=== PATIENT | female | born 1985 | race Caucasian/White ===

== ENCOUNTER → 2019-02-15 16:48 | Outpatient (CLI) | payer OTHER, SELFPAY ==
[2019-02-15 17:35] LABS: Appearance Urine UA CLEAR; Bilirubin Urine UA NEGATIVE (NEGATIVE); Color Urine UA YELLOW; Glucose Urine UA NEGATIVE (Negative); Ketones Urine UA 2+ (NEGATIVE); Leukocyte Esterase Urine UA NEGATIVE (NEGATIVE); Nitrite Urine UA NEGATIVE (Negative); Occult Blood Urine UA NEGATIVE (Negative); Protein Urine UA NEGATIVE (Negative); Specific Gravity Urine UA >=1.030 (1.000-1.035); Urobilinogen Urine UA 0.2 E.U./dL (0.2)
[2019-02-15 17:41] LABS: Add Manual Diff / Slide Review NO; Basophils Absolute Auto 100 /uL (0-100); Basophils Percent Auto 0.6 % (0-2); Eosinophils Absolute Auto 200 /uL (0-450); Eosinophils Percent Auto 1.7 % (2-4); Hemoglobin 12.9 g/dL (12.0-16.0); Lymphocytes Absolute Auto 1700 /uL (1100-4500); Mean Corpuscular HGB Conc 33.8 % (30-36); Mean Corpuscular Hemoglobin 29.1 PG (26-34); Monocytes Absolute Auto 700 /uL (0-900); Monocytes Percent Auto 6.4 % (3-14); Neutrophils Absolute Auto 8000 /uL (1500-7000); Neutrophils Percent Auto 75.3 % (50-75); Platelet Count 294 X10^3/uL (150-400); Red Blood Cell Count 4.42 X10^6/uL (4.0-5.2); Red Cell Distribution Width 13.2 % (11.6-14.8); White Blood Cell Count 10.7 X10^3/uL (4.5-11.0)
[2019-02-15 18:18] LABS: Hemoglobin A1C% w Est Avg Glu 4.9 % (4.0-6.0)
[2019-02-15 19:03] LABS: TSH w/ Reflex to FT4 3.88 uIU/mL (0.47-4.68)
[2019-02-15 19:31] LABS: Hepatitis B Surface Antigen NEGATIVE s/c (NEGATIVE)
[2019-02-15 19:48] LABS: HIV 1 & 2 Ab/Ag 4th Gen Combo NEGATIVE (NEGATIVE); Hep C Virus Ab w/Reflex Quant NEGATIVE s/c (NEGATIVE)
[2019-02-17 14:30] LABS: RPR Screen Nonreactive (Nonreactive)
[2019-02-22 10:45] LABS: AFP, Serum 27.1 ng/mL; Calc Gestational Age 16.1; Cigarette Smoker N; Donated Egg NOT GIVEN; Donor Egg Age NOT GIVEN; Estriol, Free 0.59 ng/mL; Inhibin A, Dimeric 79 pg/mL; Maternal Ethnicity NOT GIVEN; Maternal Weight 282 lbs; Number of Fetuses NOT GIVEN; Previous Pregnancy Down Syndro NOT GIVEN; hCG, MoM 0.97; hCG, Serum 23.4 IU/mL
== END ==
PROVIDERS: Visit Provider Family Medicine
DX: Z34.82 Encounter for supervision of other normal pregnancy, second trimester (principal); Z3A.16 16 weeks gestation of pregnancy
CPT/HCPCS: 80055; 81003; 82105; 82677; 83036; 84443; 84702; 86336; 86787; 86803; 86850; 86870; 86900; 86901; 87077; 87086; 87389

== ENCOUNTER → 2019-03-23 14:37 | Outpatient (CLI) | payer OTHER, SELFPAY ==
[2019-03-23 15:21] LABS: Hemoglobin A1C% w Est Avg Glu 4.9 % (4.0-6.0)
[2019-03-23 17:26] LABS: TSH w/ Reflex to FT4 4.81 uIU/mL (0.47-4.68)
== END ==
PROVIDERS: PCP Family Medicine; Visit Provider Family Medicine
DX: E03.9 Hypothyroidism, unspecified (principal); R73.9 Hyperglycemia, unspecified
CPT/HCPCS: 36415; 83036; 84439; 84443

== ENCOUNTER → 2019-04-20 11:39 | Outpatient (CLI) | payer OTHER, SELFPAY ==
--- NOTE | 2019-04-20 11:40 | DI.US.S_ITS ---
PROCEDURE: US OB >= 14 WEEKS FETUS INDICATIONS: ANATOMY OUTSIDE/PRIOR DATING DATA: Last menstrual period (LMP): 10/25/18. LMP-based estimated date of delivery (EAMON): 08/01/19. First dating scan (date and location): 04/20/19. Estimated date of delivery (EAMON) from first dating scan: 07/27/19. TECHNIQUE: Real-time scanning was performed of the fetus, with image documentation and biometric measurements. Endovaginal scanning: No COMPARISON: None. FINDINGS: General: Presentation: Breech. Placenta: Placental position is posterior fundal, without previa. Amniotic fluid index: 17.5 cm, normal range is 5-24 cm. heart rate: 144 beats per minute. Maternal cervical canal: 4.1 cm long. Normal lower limit is 2.5 cm. biometrics: Biparietal diameter: 25 weeks 5 days Head circumference: 25 weeks 5 days Abdominal circumference: 27 weeks 1 day Femur length: 25 weeks 2 days Estimated gestational age from initial scan: not applicable. Composite gestational age from present scan: 26 weeks Estimated weight and percentile: 920 g; the 83rd percentile Measurement variability for biometric dating: +/- 7 days from 14 weeks to 15 weeks 6 days gestation, +/- 10 days from 16 weeks to 21 weeks 6 days gestation, +/- 2 weeks from 22 weeks to 27 weeks 6 days gestation, +/- 3 weeks for 28 weeks gestation or later. weight reference: 4500 g or EFW >90/95% is considered macrosomia or large for gestational age. EFW <10% is small for gestational age. EFW 5% or less is considered intra-uterine growth restriction. Anatomic survey: Neuro: Not well-visualized secondary to positioning. Nuchal skin fold: Not well-visualized on this exam. Face: Nose and lips, facial profile not well-seen on this exam. Spine: No ultrasound evidence for spina bifida. Heart: 4-chambered heart is present. Right ventricular outflow tract appears unremarkable by ultrasound; left ventricular outflow tract is not well seen on this exam. Diaphragm: Diaphragm appears intact. Stomach: Stomach appears present. Kidneys: No hydronephrosis identified by ultrasound Cord: Umbilical and placental cord insertion site not well-visualized. Bladder: Within normal limits in size. Extremities: All 4 extremities identified. IMPRESSION: 1. Single intrauterine gestation with composite gestational age of 26 weeks 0 days and heart rate of 144 beats per minute. 2. intracranial structures, facial structures, left ventricular outflow tract, as well as the placental and umbilical cord insertion site are not well-visualized on this exam. Followup up anatomy scan recommended. Dictated by: Loco WARNER Interpreted: Tony Rolon MD on 04/20/2019 at 14:44 Approved by: Tony Rolon M.D. on 04/20/2019 at 20:33
== END ==
LOC: US 11:40
PROVIDERS: PCP Family Medicine; Visit Provider Family Medicine
DX: Z36.89 Encounter for other specified antenatal screening (principal); Z3A.26 26 weeks gestation of pregnancy
CPT/HCPCS: 76811

== ENCOUNTER → 2019-05-05 09:37 | Outpatient (CLI) | payer OTHER, SELFPAY ==
[2019-05-05 12:29] LABS: Hematocrit 34.7 % (36-46); Hemoglobin 11.8 g/dL (12.0-16.0)
[2019-05-05 12:35] LABS: GTT (PREG) 1 Hour PP 50gm Dose 116 mg/dL (76-139)
[2019-05-05 12:47] LABS: Free T4, Direct Thyroxine 0.64 ng/dL (0.78-2.19)
[2019-05-05 13:01] LABS: Thyroid Stimulating Hormone 4.42 uIU/mL (0.47-4.68)
== END ==
PROVIDERS: PCP Family Medicine; Visit Provider Family Medicine
DX: E03.9 Hypothyroidism, unspecified (principal); R79.89 Other specified abnormal findings of blood chemistry; Z34.82 Encounter for supervision of other normal pregnancy, second trimester; Z3A.25 25 weeks gestation of pregnancy
CPT/HCPCS: 36415; 82950; 84439; 84443; 85014; 85018; 86850

== ENCOUNTER → 2019-07-05 12:40 | Outpatient (CLI) | payer OTHER, SELFPAY ==
[2019-07-06 08:45] LABS: Strep Grp B PCR NEG for Grp B Strep
== END ==
LOC: LAB 12:40
PROVIDERS: PCP Family Medicine; Visit Provider Family Medicine
DX: Z34.83 Encounter for supervision of other normal pregnancy, third trimester (principal); Z3A.36 36 weeks gestation of pregnancy
CPT/HCPCS: 87653

== ENCOUNTER 2019-07-27 11:22 | Inpatient (IN) | payer OTHER, SELFPAY ==
--- NOTE | 2019-07-27 11:33 | P.HP_ITS ---
History of Present Illness History of Present Illness Date Patient Seen: 07/27/19 Time Patient Seen: 11:33 Chief complaint: [id number] PRIMARY Narrative: 34-year-old female G5 para 0 with an estimated due date of August 01, 2019 consistent with LMP and 20 week ultrasound. Patient presents to the labor and delivery for for section for breech position . Patient established care at 16 weeks and had routine follow-up. During her care her complications included hypothyroidism with thyroid replacement medication Rh negative received RhoGAM and allergies. During her she had a total weight gain of approximately 40 lb. Her blood pressure was normal throughout although she had some mild edema. labs show O negative blood type antibody screen initially was positive due to a RhoGAM that was given in [place] hemoglobin 38 hematocrit 12.9 platelet count 294 VDRL L negative hepatitis-B surface antigen negative HIV negative rubella immune varicella immune 2nd trimester screening genetic screening was negative repeat hemoglobin hematocrit at 37 weeks with 34.7 and 11.81 hour glucose was 116 repeat antibody screen at 27 weeks was negative ultrasound showed normal anatomy GBS status was negative Patient states she is doing well today with no concerns other than anxious about doing a . Patient's past medical history includes seasonal allergies migraine headaches asthma anemia constipation urinary tract infection Past surgical history includes tonsils and adenoids Gynecological history HPV positive and abnormal Paps denies STD history. Social history occasional of a piece no recreational drugs or alcohol use Meds Home Medications and Allergies Home Medications Medication Instructions Recorded Confirmed Type albuterol sulfate 90 mcg/actuation 1 puff INHALATION Q6H PRN 02/15/19 07/05/19 History aerosol inhaler cetirizine 10 mg tablet 10 mg PO DAILY 02/15/19 07/05/19 History fluticasone propionate 50 1 spray NASAL DAILY PRN 02/15/19 07/05/19 History mcg/actuation nasal spray,suspension prenat.vits,jason,[id number] 1 tab PO DAILY 02/15/19 07/05/19 History levothyroxine 50 mcg tablet 50 mcg PO DAILY #90 tab 06/07/19 07/05/19 Rx sertraline 50 mg tablet 50 mg PO DAILY #30 tab 07/05/19 07/05/19 Rx Allergies Allergy/AdvReac Type Severity Reaction Status Date / Time No Known Drug Allergies Allergy Verified 07/05/19 10:11 Exam Narrative Exam Narrative: . General: Alert no apparent distress. Affect is appropriate. HEENT: Neck is supple without lymphadenopathy pupils equal round and reactive. Cardio: S1-S2 regular rate and rhythm. Respiratory: Lungs clear to auscultation. Abdomen: Gravid. Extremities: Normal deep tendon reflexes trace edema. [place]: heart tones: Objective Labs Result Diagrams: 07/27/19 12:20 Assessment & Plan Assessment & Plan narrative: 34-year-old G5 para 0 39 weeks gestational age in the hospital for primary for breech presentation. Preoperative orders were written for IV placed CBC type and screen. Patient will be given antibiotics on-call. Reviewed patient with patient and partner operative procedure preoperative operative and postoperative care were reviewed including risks benefits and common complications. Questions were answered. Reviewed with patient risks include bleeding infection injury to bladder or bowel. Also the potential possibility of receiving a blood transfusion which she would agree to this if needed. Ultrasound was done before procedure to d istinguish continued breech presentation which baby was.
[2019-07-27 12:34] LABS: Add Manual Diff / Slide Review NO; Basophils Absolute Auto 100 /uL (0-100); Basophils Percent Auto 0.5 % (0-2); Eosinophils Absolute Auto 100 /uL (0-450); Eosinophils Percent Auto 1.1 % (2-4); Hematocrit 34.3 % (36-46); Hemoglobin 11.6 g/dL (12.0-16.0); Lymphocytes Absolute Auto 1800 /uL (1100-4500); Lymphocytes Percent Auto 14.9 % (25-40); Mean Corpuscular HGB Conc 33.8 % (30-36); Mean Corpuscular Hemoglobin 26.7 PG (26-34); Mean Corpuscular Volume 79.1 fL (80-100); Monocytes Absolute Auto 1000 /uL (0-900); Monocytes Percent Auto 8.2 % (3-14); Neutrophils Absolute Auto 9200 /uL (1500-7000); Neutrophils Percent Auto 75.3 % (50-75); Platelet Count 310 X10^3/uL (150-400); Red Blood Cell Count 4.34 X10^6/uL (4.0-5.2); Red Cell Distribution Width 14.9 % (11.6-14.8); White Blood Cell Count 12.2 X10^3/uL (4.5-11.0)
[2019-07-27] MEDS: LACTATED RINGERS 1,000 ML 42 ML IV ×2 (12:41→13:52)
--- NOTE | 2019-07-27 12:44 | SUR.OPER ---
Supine on Padded OR bed, head on pillow, safety belt at thigh, arms secured on padded arm boards at <90 degrees abduction. Bump under right buttock. Legs uncrossed with pillow under knees, gel pad to heels, tape over blanket to lower legs.
[2019-07-27] MEDS: CEFAZOLIN 2 GM/100 ML FROZ.PIGGY IV (13:23)
[2019-07-27] MEDS: ACETAMINOPHEN IV 1,000 MG/100 ML VIAL 400 MG IV (13:47)
--- NOTE | 2019-07-27 13:57 | SUR.OPER ---
VIABLE MALE INFANT DELIVERED AT 1346. PLACENTA AND CORD BLOOD TO OB WITH RN.
[2019-07-27 14:30] VITALS: BP 119/61; PULSE 68; RESP 15; TEMP 36.3; O2SAT 99
--- NOTE | 2019-07-27 14:30 | P.PCN_ITS ---
Procedures Date/Time Date of procedure: 07/27/19 Time of procedure: 14:30 General Procedure description: Procedure: Lower segment transverse section Consent: Verbal and written informed consent were obtained from the patient placed on the chart. Indications: 34-year-old G5 para 0 at 39 weeks gestational age with breech presentation Findings: Normal uterus normal ovaries Normal male infant breech presentation Anesthesia: Spinal Surgeon: Dr. Gavino Negro Supervisor Network Control Operators: Dr. Bass Estimated blood loss: 500 mL Drains: Willams to gravity. IV fluids: 1800 LR Description of procedure: The patient was brought to the operating room after her spinal epidural, preparation, and Willams had been performed. The abdomen was prepped and draped in tested for for analgesia. When it was found to be adequate, a lower abdominal Pfannenstiel incision was made with first with a knife and cared down to the fascia with a second knife. The fascia was incised in the midline and extended laterally with a knife. Bleeding points were clamped with hemostats and Bovie coagulated. The rectus muscles were by blunt dissection. The rectus muscles were divided in the midline and the peritoneum was grasped with hemostats and carefully entered with Castellanos scissors. The incision was extended bilaterally. The bladder blade was then placed. The vesicoperitoneum was grasped with smooth pickups, entered with Metzenbaum scissors, and extended laterally. The bladder flap was created by gently blunt dissection and placed behind the bladder blade. The lower uterine segment was noted to be thin was carefully incised with the scalpel and extended laterally with the fingers. A live was found to be in the breech. Baby's bottom was easily delivered and then the body. Both arms were then delivered the head was easy then delivered onto the mother's abdomen.. The baby was then suctioned and cried immediately, and was handed to the waiting attendant. The placenta was delivered manually. The uterus was explored with a wet lap sponge and found to be clear membranes. The first layer of the uterine closure was with running locking #1 chromic catgut suture. The second layer with an imbricating #1 chromic catgut suture. Hemostasis was carefully checked and found to be satisfactory. The bladder flap was closed with a running 2-0 chromic catgut suture. The fallopian tubes and ovaries were inspected and to be found normal bilaterally. After sponge and needle counts were found to be correct the peritoneum was closed with 2-0 chromic catgut suture. Rectus muscles were approximated in the lower midline. The fascia was closed with a 2 running 0 Vicryl from lateral to midline. The subcutaneous tissue was approximated with interrupted 2.0 plain gut. Bleeding points were Bovie and coagulated. The subcutaneous tissue was approximated with 2.0 plain gut suture. The skin was closed with 1-0 running subcuticular stitch. Urinary output was adequate and normal patient left to the recovery room in good condition. Complications: none
[2019-07-27 14:35] VITALS: BP 128/74; PULSE 88; RESP 11; O2SAT 98
[2019-07-27 14:40] VITALS: BP 117/56; PULSE 73; O2SAT 98
[2019-07-27 14:45] VITALS: BP 124/58; PULSE 67; RESP 16; O2SAT 99
[2019-07-27 14:50] VITALS: BP 134/62; PULSE 71; RESP 11; O2SAT 99
--- NOTE | 2019-07-27 14:54 | SUR.PHASEI ---
Dr. Negro spoke to patient, patient became teary, HR increased to 140s briefly and decreased back to 70s as patient calmed. Report called to Juliette.
[2019-07-27] MEDS: LACTATED RINGERS 1,000 ML 100 ML IV (15:58)
[2019-07-27] MEDS: OXYCODONE/ACETAMINOPHEN 5/325 TABLET 1 TAB PO ×2 (16:02→20:50)
[2019-07-27] MEDS: NALBUPHINE 20 MG/ML AMPUL 5 MG IV ×2 (16:06→22:22)
[2019-07-27 18:55] VITALS: BP 132/72
[2019-07-27] MEDS: KETOROLAC 30 MG/ML VIAL IV (20:49)
[2019-07-28] MEDS: LACTATED RINGERS 1,000 ML 100 ML IV (01:25)
[2019-07-28] MEDS: KETOROLAC 30 MG/ML VIAL IV ×2 (02:50→09:20)
[2019-07-28 04:43] VITALS: BP 136/76; PULSE 87; RESP 16; TEMP 36.6
[2019-07-28] MEDS: OXYCODONE/ACETAMINOPHEN 5/325 TABLET 1 TAB PO (05:57)
[2019-07-28 07:21] LABS: Add Manual Diff / Slide Review NO; Basophils Absolute Auto 0 /uL (0-100); Basophils Percent Auto 0.3 % (0-2); Eosinophils Absolute Auto 200 /uL (0-450); Eosinophils Percent Auto 1.4 % (2-4); Hematocrit 29.6 % (36-46); Hemoglobin 9.8 g/dL (12.0-16.0); Lymphocytes Absolute Auto 1400 /uL (1100-4500); Lymphocytes Percent Auto 11.9 % (25-40); Mean Corpuscular HGB Conc 33.3 % (30-36); Mean Corpuscular Hemoglobin 26.8 PG (26-34); Mean Corpuscular Volume 80.4 fL (80-100); Monocytes Absolute Auto 1100 /uL (0-900); Monocytes Percent Auto 9.4 % (3-14); Neutrophils Absolute Auto 9300 /uL (1500-7000); Platelet Count 233 X10^3/uL (150-400); Red Blood Cell Count 3.68 X10^6/uL (4.0-5.2); Red Cell Distribution Width 14.9 % (11.6-14.8)
--- NOTE | 2019-07-28 08:25 | P.PN_ITS ---
Subjective Subjective Date Patient Seen: 07/28/19 Time Patient Seen: 08:26 Interval history: day 1. Status post for breech presentation. Mom said she did well overnight. Has not been out of bed yet. Willams catheter in SCDs are still on. Took 2 Percocet 1 last night and 1 this morning pain is well controlled. Tolerating her diet. she says is going good. Vital signs have been stable. Mild incisional bleeding which is normal. Vaginal bleeding as anticipated and expected this. Exam Vital Signs (past 8 hours): Oxygen Delivery Method Room Air Narrative Exam Narrative: General: Alert no apparent distress. Affect is appropriate. Cathleen it is uncomfortable. HEENT: Neck is supple without lymphadenopathy pupils equal round and reactive. Cardio: S1-S2 regular rate and rhythm. Respiratory: Lungs clear to auscultation. Abdomen: Uterus firm. Incision clean dry and intact. Extremities: Normal deep tendon reflexes moderate edema. Objective Labs Result Diagrams: 07/28/19 06:40 Labs: Laboratory Results - last 24 hr 07/27/19 07/27/19 07/28/19 12:20 12:20 06:40 WBC 12.2 H 12.0 H RBC 4.34 3.68 L Hgb 11.6 L 9.8 L Hct 34.3 L 29.6 L MCV 79.1 L 80.4 MCH 26.7 26.8 MCHC 33.8 33.3 RDW 14.9 H 14.9 H Plt Count 310 233 Neut % (Auto) 75.3 H 77.0 H Lymph % (Auto) 14.9 L 11.9 L [place] % (Auto) 8.2 9.4 Eos % (Auto) 1.1 L 1.4 L Baso % (Auto) 0.5 0.3 Neut # (Auto) 9200 H 9300 H Lymph # (Auto) 1800 1400 [place] # (Auto) 1000 H 1100 H Eos # (Auto) 100 200 Baso # (Auto) 100 0 Blood Type O Negative Antibody Screen Positive Antibody Identification Anti-D Maternal Bleed 07/28/19 06:40 WBC RBC Hgb Hct MCV MCH MCHC RDW Plt Count Neut % (Auto) Lymph % (Auto) [place] % (Auto) Eos % (Auto) Baso % (Auto) Neut # (Auto) Lymph # (Auto) [place] # (Auto) Eos # (Auto) Baso # (Auto) Blood Type Antibody Screen Antibody Identification Maternal Bleed Negative Assessment & Plan Assessment & Plan narrative: Postoperative day 1. For with breech presentation. Plan. DC Willams catheter. Remove SCDs. Ambulate at the side of the bed. Transition to oral pain medication. DC IV fluids and Hep-Lock IV. Mom's doing well. Tolerating diet. Monitor bleeding urination and vitals.
[2019-07-28] MEDS: LEVOTHYROXINE 50 MCG TABLET PO (09:21)
[2019-07-28] MEDS: PRENATAL VIT,CALC/IRON/FOLIC 1 TABLET 1 TAB PO (09:21)
[2019-07-28] MEDS: RHO(D) IMMUNE GLOBULIN 1,500 UNIT SYRINGE 1500 UNIT IM (09:22)
[2019-07-28] MEDS: HYDROCODONE/ACET 5/325 TABLET 2 TAB PO (10:10)
[2019-07-28] MEDS: DOCUSATE 100 MG CAPSULE PO (12:56)
[2019-07-28] MEDS: FERROUS GLUCONATE 324 MG TABLET PO (12:56)
[2019-07-28] MEDS: OXYCODONE/ACETAMINOPHEN 5/325 TABLET 2 TAB PO ×3 (14:12→22:55)
[2019-07-28] MEDS: IBUPROFEN 600 MG TABLET PO ×2 (16:54→22:55)
[2019-07-28] MEDS: OXYCODONE IR 10 MG TABLET PO (16:54)
[2019-07-29] MEDS: OXYCODONE IR 10 MG TABLET PO (04:28)
--- NOTE | 2019-07-29 07:59 | P.DS_ITS ---
History of Present Illness History of Present Illness Chief complaint: [id number] PRIMARY Narrative: 34-year-old female G5 para 0 with an estimated due date of August 01, 2019 consistent with LMP and 20 week ultrasound. Patient presents to the labor and delivery for for section for breech position . Patient established care at 16 weeks and had routine follow-up. During her care her complications included hypothyroidism with thyroid replacement medication Rh negative received RhoGAM and allergies. During her she had a total weight gain of approximately 40 lb. Her blood pressure was normal throughout although she had some mild edema. labs show O negative blood type antibody screen initially was positive due to a RhoGAM that was given in [place] hemoglobin 38 hematocrit 12.9 platelet count 294 VDRL L negative hepatitis-B surface antigen negative HIV negative rubella immune varicella immune 2nd trimester screening genetic screening was n egative repeat hemoglobin hematocrit at 37 weeks with 34.7 and 11.81 hour glucose was 116 repeat antibody screen at 27 weeks was negative ultrasound showed normal anatomy GBS status was negative Patient states she is doing well today with no concerns other than anxious about doing a . Patient's past medical history includes seasonal allergies migraine headaches asthma anemia constipation urinary tract infection Past surgical history includes tonsils and adenoids Gynecological history HPV positive and abnormal Paps denies STD history. Social history occasional of a piece no recreational drugs or alcohol use Discharge Providers Provider Date of admission: 07/27/19 11:22 Discharge Date: 07/29/19 Primary care physician: Gavino Negro MD Consults: 07/27/19 15:40 Consult to Direct Casting Operator Routine Comment: Discharge provider: Gavino Nergo MD Summary Hospital Course Discharge Diagnosis: Term intrauterine delivered by due to breech presentation Routine post care Hospital Course: Patient was admitted to the hospital for a section due to breech presentation of fetus. Patient underwent without difficulty. Delivery of a viable male infant with Apgars 9 and 9. day 1. Mom was doing well pain was well controlled. Ambulation ensued after removal Willams catheter SCDs. Her IV was removed as well. Later that evening she had more discomfort than anticipated and we changed her pain medication around 2 regular oxycodone as opposed to Percocet so we could give her a little higher dose. The time no incisional bleeding. No fevers or chills and vital signs were stable no increased vaginal bleeding concerns. she had mild drop in her hemoglobin and hematocrit so she was started on iron supplementation and addition to her regular medication of thyroid medication is Zoloft and and vitamins. day 2. Pain was doing better with pain control. Breast-feeding was going well. Mom's vital signs were stable. Incision looks good no bleeding. She was tolerating a regular diet urination without difficulty. Patient double comfortable going home. And pain medication ibuprofen iron supplementation and vitamins were written for Exam Vital Signs (past 8 hours): Oxygen Delivery Method Room Air Narrative Exam Narrative: General: Alert no apparent distress. Affect is appropriate. Cathleen it is uncomfortable. HEENT: Neck is supple without lymphadenopathy pupils equal round and reactive. Cardio: S1-S2 regular rate and rhythm. Respiratory: Lungs clear to auscultation. Abdomen: Uterus firm. Incision clean dry and intact. Extremities: Normal deep tendon reflexes moderate edema. Objective Labs Result Diagrams: 07/28/19 06:40 Discharge Plan Discharge Plan Patient Disposition: Home Discharge orders & Medications Prescriptions: New ferrous gluconate 324 mg (38 mg iron) Tablet 324 mg PO DAILY Qty: 30 RF: 0 ibuprofen 600 mg Tablet 600 mg PO Q6HR PRN (Reason: Fever/Mild Pain (1-3)) Qty: 30 RF: 0 oxycodone 10 mg Tablet 10 mg PO Q4HR PRN (Reason: Pain, Severe (7-10)) Qty: 30 RF: 0 docusate sodium [DOK] 100 mg Capsule 100 mg PO DAILY Qty: 30 RF: 0 Continued levothyroxine 50 mcg tablet 50 mcg PO DAILY Qty: 90 RF: 1 sertraline 50 mg tablet 50 mg PO DAILY Qty: 30 RF: 2 cetirizine [Zyrtec] 10 mg tablet 10 mg PO DAILY RF: 0 albuterol sulfate 90 mcg/actuation HFA aerosol inhaler 1 puff INHALATION Q6H PRNRF: 0 fluticasone propionate [Flonase Allergy Relief] 50 mcg/actuation spray,can spension 1 spray NASAL DAILY PRN (Reason: allergy symptoms) RF: 0 prenat.vits,jason,[id number] tablet 1 tab PO DAILY RF: 0 Follow up/Referrals: Gavino Negro MD [Primary Care Provider] - Visit Report/Discharge Packet Visit Report Forms: Patient Portal/API, Stroke Signs & Symptoms Discharge Data Primary Care Provider: Gavino Negro
[2019-07-29] MEDS: IBUPROFEN 600 MG TABLET PO (08:26)
[2019-07-29] MEDS: SERTRALINE 50 MG TABLET PO (08:26)
[2019-07-29] MEDS: PRENATAL VIT,CALC/IRON/FOLIC 1 TABLET 1 TAB PO (08:27)
[2019-07-29] MEDS: DOCUSATE 100 MG CAPSULE PO (08:27)
[2019-07-29] MEDS: LEVOTHYROXINE 50 MCG TABLET PO (08:27)
[2019-07-29] MEDS: OXYCODONE/ACETAMINOPHEN 5/325 TABLET 2 TAB PO ×2 (08:27→12:18)
[2019-07-29] MEDS: FERROUS GLUCONATE 324 MG TABLET PO (08:27)
== END 2019-07-29 12:56 | disposition home or self-care (01) | DRG 787 ==
PROVIDERS: Admitting Provider Family Medicine; PCP Family Medicine; Visit Provider Family Medicine
PROC: 10D00Z1 Extraction of Products of Conception, Low, Open Approach (ICD-10-PCS; CPT 59514; principal; 2019-07-27 13:30)
DX: O32.1XX0 Maternal care for breech presentation, not applicable or unspecified (principal); D62 Acute posthemorrhagic anemia; J45.909 Unspecified asthma, uncomplicated; E03.9 Hypothyroidism, unspecified; O99.02 Anemia complicating childbirth; D64.9 Anemia, unspecified
CPT/HCPCS: 36415; 59050; 59510; 59514; 76815; 85025; 85461; 86850; 86870; 86900; 86901; J0131; J0690; J1885; J2274; J2300; J2590; J2790

== ENCOUNTER → 2021-01-23 14:07 | Outpatient (CLI) | payer OTHER, SELFPAY ==
--- NOTE | 2021-01-23 14:11 | DI.RAD.S_ITS ---
PROCEDURE: XR ABDOMEN 1V INDICATIONS: abd pain' TECHNIQUE: One view of the abdomen acquired. COMPARISON: None. FINDINGS: Surgical changes and devices: None. Bowel: Bowel gas pattern is normal. Soft tissues: No suspicious abdominal calcifications. Visualized solid organ contours appear normal in size. Bones: No suspicious bony lesions. IMPRESSION: Centrally positioned IUD. This is located within the lower half of the pelvis. Normal bowel gas pattern. Dictated by: Shoaib Tapia M.D. on 01/23/2021 at 16:16 Approved by: Shoaib Tapia M.D. on 01/23/2021 at 16:17
[2021-01-23 16:28] LABS: TSH w/ Reflex to FT4 5.89 uIU/mL (0.47-4.68)
[2021-01-23 17:05] LABS: HIV 1 & 2 Ab/Ag 4th Gen Combo NEGATIVE (NEGATIVE)
[2021-01-23 17:21] LABS: Free T4, Direct Thyroxine 0.83 ng/dL (0.78-2.19)
[2021-01-23 17:24] LABS: Urine N gonorrhoeae NOT DETECTED
[2021-01-23 17:28] LABS: Urine Chlamydia NOT DETECTED
== END ==
LOC: RAD 14:10
PROVIDERS: PCP Family Medicine; Referring Provider Family Medicine; Visit Provider Family Medicine
DX: K59.00 Constipation, unspecified (principal); R53.83 Other fatigue; R10.9 Unspecified abdominal pain; Z97.5 Presence of (intrauterine) contraceptive device
CPT/HCPCS: 36415; 74018; 84439; 84443; 87389; 87491; 87591

== ENCOUNTER → 2023-05-12 15:34 | Outpatient (CLI) | payer OTHER, SELFPAY ==
[2023-05-12 18:30] LABS: Add Manual Diff / Slide Review NO; Basophils Absolute Auto 100 /uL (0-100); Basophils Percent Auto 0.8 % (0-2); Eosinophils Absolute Auto 300 /uL (0-450); Eosinophils Percent Auto 3.2 % (2-4); Hemoglobin 12.9 g/dL (12.0-16.0); Lymphocytes Absolute Auto 2500 /uL (1100-4500); Mean Corpuscular Hemoglobin 28.3 PG (26-34); Mean Corpuscular Volume 83.1 fL (80-100); Monocytes Absolute Auto 600 /uL (0-900); Monocytes Percent Auto 7.3 % (3-14); Neutrophils Absolute Auto 5300 /uL (1500-7000); Neutrophils Percent Auto 60.7 % (50-75); Platelet Count 313 X10^3/uL (150-400); Red Blood Cell Count 4.57 X10^6/uL (4.0-5.2); Red Cell Distribution Width 13.8 % (11.6-14.8); White Blood Cell Count 8.8 X10^3/uL (4.5-11.0)
[2023-05-12 18:37] LABS: Hemoglobin A1C% w Est Avg Glu 5.5 % (4.0-6.0)
[2023-05-12 18:48] LABS: HEMOLYSIS < 15 (0-50); Iron 65 ug/dL (37-170)
[2023-05-12 18:56] LABS: Alanine Aminotransferase 29 IU/L (<35); Albumin 4.5 g/dL (3.5-5.0); Albumin Globulin Ratio 1.6 (1.0-2.8); Alkaline Phosphatase 93 U/L (38-126); Aspartate Aminotransferase 29 IU/L (14-36); BUN Creatinine Ratio 17.1 (6-22); Bilirubin Total 0.6 mg/dL (0.2-1.3); Blood Urea Nitrogen 14 mg/dL (7-17); Calcium 10.1 mg/dL (8.4-10.2); Carbon Dioxide 26 mmol/L (22-32); Chloride 100 mmol/L (98-107); Estimated Glomerular Filt Rate > 60 mL/min (>60); Globulin 2.9 g/dL (1.7-4.1); Glucose 80 mg/dL (70-100); HEMOLYSIS < 15 (0-50); Potassium 3.8 mmol/L (3.4-5.1); Sodium 138 mmol/L (137-145); Total Protein 7.4 g/dL (6.3-8.2)
[2023-05-12 18:58] LABS: Percent Iron Saturation 15 % (15-50); Total Iron Binding Capacity 437 ug/dL (265-497); Transferrin 349 mg/dL (206-381)
[2023-05-12 19:06] LABS: Free T3, Triiodothyronine Free 3.54 pg/mL (2.77-5.27)
[2023-05-12 19:41] LABS: Vitamin B12 533 pg/mL (239-931)
== END ==
PROVIDERS: PCP Family Medicine; Referring Provider Family Medicine; Visit Provider Family Medicine
DX: Z00.00 Encounter for general adult medical examination without abnormal findings (principal); E03.9 Hypothyroidism, unspecified; R53.82 Chronic fatigue, unspecified; K59.09 Other constipation
CPT/HCPCS: 36415; 80053; 82306; 82607; 83036; 83540; 83550; 84439; 84481; 85025

== ENCOUNTER 2023-10-01 11:47 | Day surgery (SDC) | payer OTHER, SELFPAY ==
[2023-10-01] MEDS: LACTATED RINGERS 1,000 ML 42 ML IV (12:00)
[2023-10-01 12:19] VITALS: BP 139/76; PULSE 90; RESP 16; TEMP 36.7; O2SAT 100
--- NOTE | 2023-10-01 12:30 | PM.PREOP ---
Pre-operative Note Interval Note History & Physical reviewed/Exam performed by Physician: Yes Changes to H&P: No
[2023-10-01 12:52] VITALS: BP 113/60; PULSE 72; RESP 18; TEMP 37.2; O2SAT 94
--- NOTE | 2023-10-01 12:53 | P.OP.COLON_ITS ---
Operative Date/Time/Diagnoses Date of procedure: 10/01/23 Time of procedure: 12:53 Pre-op diagnosis: Rectal bleeding Procedure & Clinicians Study performed: Diagnostic colonoscopy Same procedure as scheduled: Yes Indications: Rectal bleeding Surgeon: Charlie Reich Procedure Notes Procedure in detail: The history and physical was performed/updated and the patient is ASA class is 2. The procedure was discussed in detail with the patient. Potential risks complications including infection, bleeding, missed diagnosis, perforation, need for surgery, and were explained. Their questions were answered and informed consent was obtained. Patient was brought to the procedure room and placed standard monitoring equipment. The patient's vital signs were monitored continuously throughout the entire procedure. Prior to starting time-out was performed. The patient was placed in the left lateral recumbent position. Procedural sedation was administered by anesthesia. Examination began with a thorough inspection of the perianal area there was no evidence of fissures, fistulae, external hemorrhoids or cutaneous malignancy. The colonoscopy scope was then placed into the anal canal and was advanced to the cecum, which was identified by the ileocecal valv e, the appendiceal orifice and the confluence of the taenia. The scope was then slowly withdrawn examining colon thoroughly in all directions, irrigating it of any residual stool. The scope was retroflexed within the rectum The patient tolerated the procedure well. They will be discharged once criteria are met. The prep was of good/excellent quality. The withdrawl time was 7 minutes. FINDINGS * Internal hemorrhoids grade 1. Insufficient tissue for hemorrhoidal banding. * No masses polyps or inflammation. Specimen(s): none sent Impression: Internal hemorrhoids Post-procedure Recommendations: High fiber diet Disposition: same day surgery
[2023-10-01 12:57] VITALS: BP 123/64; PULSE 68; RESP 17; O2SAT 95
[2023-10-01 13:06] VITALS: BP 117/58; PULSE 75; RESP 13; O2SAT 97
== END 2023-10-01 13:16 | disposition home or self-care (01) ==
PROVIDERS: PCP Family Medicine; Referring Provider Surgery; Visit Provider Surgery
PROC: 0DJD8ZZ Inspection of Lower Intestinal Tract, Via Natural or Artificial Opening Endoscopic (ICD-10-PCS; CPT 45378; principal; 2023-10-01 12:30)
DX: K62.5 Hemorrhage of anus and rectum (principal); K64.0 First degree hemorrhoids
CPT/HCPCS: 45378; J2704

== ENCOUNTER → 2023-10-24 14:27 | Outpatient (CLI) | payer OTHER, SELFPAY ==
[2023-10-24 15:12] LABS: Influenza A - CEPHEID Flu A NEGATIVE (NEGATIVE); Influenza B - CEPHEID Flu B NEGATIVE (NEGATIVE); Respiratory Syncytial Virus Negative (Negative)
[2023-10-24 15:15] LABS: COVID-19 CEPHEID 4-PLEX PCR Negative (Negative)
== END ==
PROVIDERS: PCP Family Medicine; Visit Provider Physician Assistant Medical
DX: R50.9 Fever, unspecified (principal); R06.2 Wheezing
CPT/HCPCS: 0241U

== ENCOUNTER → 2025-06-13 10:51 | Outpatient (CLI) | payer OTHER, SELFPAY ==
[2025-06-13 12:16] LABS: Hematocrit 39.4 % (36-46); Hemoglobin 13.4 g/dL (12.0-16.0); Mean Corpuscular HGB Conc 34.1 % (30-36); Mean Corpuscular Hemoglobin 28.2 PG (26-34); Mean Corpuscular Volume 82.5 fL (80-100); Platelet Count 334 X10^3/uL (150-400)
[2025-06-13 12:26] LABS: Hemoglobin A1C% w Est Avg Glu 5.0 % (4.0-6.0)
[2025-06-13 12:35] LABS: HEMOLYSIS < 15 (0-50); Iron 102 ug/dL (37-170)
[2025-06-13 12:40] LABS: Alanine Aminotransferase 22 IU/L (<35); Albumin 5.0 g/dL (3.5-5.0); Albumin Globulin Ratio 1.8 (1.0-2.8); Alkaline Phosphatase 91 U/L (38-126); Blood Urea Nitrogen 13 mg/dL (7-17); Calcium 9.5 mg/dL (8.4-10.2); Carbon Dioxide 22 mmol/L (22-32); Chloride 104 mmol/L (98-107); Cholesterol 207 mg/dL (140-199); Estimated Glomerular Filt Rate > 60 mL/min (>60); Globulin 2.8 g/dL (1.7-4.1); Glucose 106 mg/dL (70-99); HDL Cholesterol 57 mg/dL (40-60); HEMOLYSIS < 15 (0-50); Potassium 4.4 mmol/L (3.4-5.1); Sodium 140 mmol/L (137-145); Total Protein 7.8 g/dL (6.3-8.2); Triglycerides 127 mg/dL (35-150)
[2025-06-13 12:46] LABS: Percent Iron Saturation 22 % (15-50); Total Iron Binding Capacity 457 ug/dL (265-497); Transferrin 385 mg/dL (206-381)
[2025-06-13 13:14] LABS: Ferritin 18 ng/mL (6-137)
[2025-06-13 15:31] LABS: Vitamin D 25 Hydroxy (D3) 48.7 ng/mL (30.0-100.0)
[2025-06-16 17:08] LABS: Anti Thyroglobulin Antibody <1.0 IU/mL (0.0-0.9)
== END ==
LOC: LAB 10:56
PROVIDERS: PCP Family Medicine; Referring Provider Family Medicine; Visit Provider Family Medicine
DX: Z13.9 Encounter for screening, unspecified (principal); Z13.21 Encounter for screening for nutritional disorder; Z13.1 Encounter for screening for diabetes mellitus; Z13.220 Encounter for screening for lipoid disorders; R53.82 Chronic fatigue, unspecified; E03.9 Hypothyroidism, unspecified; N92.0 Excessive and frequent menstruation with regular cycle; E66.9 Obesity, unspecified
CPT/HCPCS: 36415; 80053; 80061; 82306; 82728; 83036; 83540; 83550; 85027; 86376; 86800

== ENCOUNTER → 2025-07-02 15:37 | Outpatient (CLI) | payer OTHER, SELFPAY ==
[2025-07-02 17:37] LABS: Free T4, Direct Thyroxine 0.95 ng/dL (0.78-2.19)
[2025-07-02 18:41] LABS: Thyroid Stimulating Hormone 3.39 uIU/mL (0.47-4.68)
== END ==
PROVIDERS: PCP Family Medicine; Referring Provider Family Medicine; Visit Provider Family Medicine
DX: E03.9 Hypothyroidism, unspecified (principal)
CPT/HCPCS: 84439; 84443

== ENCOUNTER → 2025-07-10 09:40 | Outpatient (CLI) | payer OTHER, SELFPAY ==
[2025-07-10 11:17] LABS: Follicle Stimulating Hormone 4.28 mIU/mL; HCG Quantitative /Beta subunit < 2.39 mIU/mL
== END ==
PROVIDERS: PCP Family Medicine; Referring Provider Family Medicine; Visit Provider Family Medicine
DX: N92.1 Excessive and frequent menstruation with irregular cycle (principal); R23.2 Flushing
CPT/HCPCS: 36415; 82672; 83001; 83002; 84146; 84402; 84403; 84702